=== PATIENT | female | born 1995 | race Caucasian/White ===

== ENCOUNTER 2016-09-05 15:28 | Emergency (ER) | payer BC ==
[~2016-09-05] VITALS: Ht 160 cm; Wt 101.7 kg
[~2016-09-05 15:28] MED LIST: ALBUAER2 INH; DEXM10TA PO; DEXM30CA PO; DEXM5TAB PO; IBUP-1451 PO; LANS30CA12 PO; RANI300T2 PO; SNG10 PO; SUMA50TA15 PO; VALA1TAB PO; ZLF/50 PO
[2016-09-05 15:51] VITALS: BP 112/69; PULSE 89; TEMP 36.8; O2SAT 99; Ht 160 cm; Wt 101.7 kg
== END 2016-09-05 17:39 | disposition left against medical advice (07) ==
LOC: C.EDB 15:30 → C.EDC 17:39
DX: R10.9 Unspecified abdominal pain (principal)

== ENCOUNTER 2016-10-13 16:13 | Emergency (ER) | payer BC, OTHER ==
[~2016-10-13] VITALS: Ht 160 cm; Wt 103.3 kg
[2016-10-13 16:19] VITALS: Ht 160 cm; Wt 103.3 kg
[2016-10-13] MEDS ORDERED: ZNTT/150 PO (17:43)
[2016-10-13] MEDS ORDERED: MONT1TAB5 PO (17:43)
[2016-10-13 17:44] LABS: URINE APPEARANCE CLOUDY (CLEAR); URINE BILIRUBIN NEG (NEG); URINE COLOR YELLOW; URINE EPITHELIAL CELL AUTO >30 /lpf (0-5); URINE NITRITE NEG (NEG); URINE SPECIFIC GRAVITY 1.024 (1.000-1.030); UROBILINOGEN NEG (NEG)
[2016-10-13 17:45] LABS: MANUAL MICROSCOPIC REQUIRED? NO; REVIEW REQ? YES
--- NOTE | 2016-10-13 17:47 | EMERGENCY ROOM VISIT NOTE ---
History First contact with patient: 17:09 Chief Complaint: ABDOMINAL PAIN Stated Complaint: DISCHARGE, CRAMPING- 11WKS Nursing Triage Summary: triage note: pt reprots "i am having yellowish discharge and abd cramping and i am 11 weeks today." History of Present Illness The patient is a 20 year old female who presents to the Emergency Room with complaints of vaginal discharge and lower abdominal "burning" that started today. She states she had large amount of clear and white vaginal discharge. She states that she is 11 weeks , , and has already had her first trimester screening including ultrasound. Patient states that she was found to have a Chlamydia infection a few weeks ago, she did not have any symptoms with this, and she was treated. She was also told to take Monistat for suspected yeast infection, which she did not start taking until recently. She denies any foul smelling discharge, vaginal itching or pain, vaginal bleeding, abdominal pain, back pain, intractable nausea/vomiting, urinary complaints. Review of Systems GENERAL: Denies fevers, chills, malaise, fatigue, unintentional weight changes. HEENT: Denies dizziness, visual problems, hearing loss, tinnitus. Denies difficulty swallowing or oral lesions. PULMONARY: Denies cough, shortness of breath, sputum production or hemoptysis. CARDIOVASCULAR: Denies chest pain, palpitations, dyspnea on exertion, orthopnea or peripheral edema. GASTROINTESTINAL: Denies diarrhea, constipation, nausea, vomiting, or abdominal pain. GENITOURINARY: Denies dysuria, frequency, urgency or nocturia. + Vaginal discharge. NEUROLOGIC: Denies history of epilepsy, CVA, TIA or chronic headaches. MUSCULOSKELETAL: Denies history of joint tenderness/swelling. SKIN: Denies rashes or lesions. PSYCHIATRIC: Denies history of depression or mental illness. ENDOCRINE: Denies history of diabetes, thyroid disorders, abnormal hair growth or sexual dysfunction. Past Medical/Surgical History Medical Problems: (1) Asthma (2) FAM HX-DIABETES MELLITUS (3) FAMILY HISTORY OF OTHER CARDIOVASCULAR DISEASES (4) FAMILY HX-MALIGNANCY NOS Family History Cancer Heart disease Social History Smoking Status: Former Smoker Alcohol Use: none Marital Status: single Housing Status: lives with family Occupation Status: student Current/Historical Medications Scheduled Montelukast Sodium (Montelukast Sodium), 10 MG PO DAILY Ranitidine (Zantac), 50 MG PO DAILY Allergies Coded Allergies: Amoxicillin (Unverified Allergy, Mild, OTHER, 02/05/15) POLLEN (Unverified Allergy, Unknown, SNEEZE ITCHY WATERY EYES, 02/05/15) Physical Exam Vital Signs Date Time Temp Pulse Resp B/P Pulse Ox O2 Delivery O2 Flow Rate FiO2 10/13/16 19:03 36.9 88 18 111/87 99 10/13/16 18:35 88 18 111/87 99 Room Air 10/13/16 16:19 36.9 94 18 106/69 99 Room Air Physical Exam CONSTITUTIONAL: No acute distress. Well appearing and well nourished. Alert and oriented X 4 with normal affect. HEENT: Normocephalic, atraumatic. Pupils equal, round and reactive to light, EOMI. TMs normal. Pharynx normal. NECK: Supple, full active range of motion without discomfort. RESPIRATORY: Clear to auscultation bilaterally with no wheezing, crackles, rhonchi or stridor. Equal expansion bilaterally. CARDIOVASCULAR: Regular rate and rhythm with no murmurs, rubs or gallops. Normal peripheral perfusion. No edema. GASTROINTESTINAL: Soft, nontender, nondistended. Bowel sounds present in all quadrants. GENITOURINARY: External genitalia appear normal. Speculum exam reveals normal- appearing cervix with moderate amount of thick, white discharge consistent with harleen infection. No cervical motion tenderness, uterine tenderness, adnexal tenderness on internal exam. No bleeding or blood clots noted. Cervical os is closed. MUSCULOSKELETAL: Full range of motion of all joints without discomfort. INTEGUMENTARY: No rash or other significant dermatologic conditions noted. NEUROLOGIC: Cranial nerves II-XII grossly intact. No focal neurologic deficits noted. Medical Decision & Procedures ER Provider Diagnostic Interpretation: ED bedside ultrasound performed to evaluate the . Transabdominal imaging done with the phased array probe. heart rate measured at 171 bpm using M mode. Active movement noted on ultrasound. Fetus measuring consistent with dates by crown-rump length, approximately 11 weeks 3 days. Patient tolerated well with no medications. Laboratory Results Test 10/13/16 17:30 Urine Color YELLOW Urine Appearance CLOUDY (CLEAR) Urine pH 5.0 (4.5-7.5) Urine Specific [place] 1.024 (1.000-1.030) Urine Protein NEG (NEG) Urine Glucose (UA) NEG (NEG) Urine Ketones NEG (NEG) Urine Occult Blood NEG (NEG) Urine Nitrite NEG (NEG) Urine Bilirubin NEG (NEG) Urine Urobilinogen NEG (NEG) Urine Leukocyte Esterase NEG (NEG) Urine WBC (Auto) 1-5 /hpf (0-5) Urine RBC (Auto) 0-4 /hpf (0-4) Urine Hyaline Casts (Auto) 1-5 /lpf (0-5) Urine Epithelial Cells (Auto) >30 /lpf (0-5) Urine Bacteria (Auto) NEG (NEG) Urine Crystals CALCIUM OXALATE (NONE Urine Yeast (Auto) (NONE PRSENT) Date/Time Source Procedure Growth Status 10/13/16 17:55 Cervix Swab Trichomonas Preparation - Final Complete ED Course Patient was evaluated at bedside, history of physical exam performed. Orders were placed at bedside for urinalysis and endocervical cultures to evaluate for UTI, intravaginal infection. Patient discussed with Dr. Sylvester, who agrees with my assessment and plan. All resulted labs were reviewed. Patient updated results. Patient discharged home in good condition with plans to follow closely with her OB. Medical Decision CC: Patient presenting with complaint of vaginal discharge Interpretation of Labs: Urinalysis appears normal, no bacteriuria or concern for infection. Urine and endocervical cultures pending. Differential Diagnosis: Includes, but not limited to bacterial vaginosis, candidal vaginal infection, STI, urinary tract infection, threatened miscarriage. Summary: Patient is alert, no acute distress. Pleasant on examination. Patient states she has primarily concerned with large amount of vaginal discharge today. Patient did state abdominal pain to triage, however she denies this to me and is nontender on abdominal exam. Internal pelvic exam reveals moderate amount of thick white discharge consistent with a yeast infection. No bleeding noted in the vagina, cervix is closed. No cervical motion tenderness or friability. Urinalysis appears negative for infection, culture pending. Given her recent chlamydia infection and current state, repeat endocervical cultures for chlamydia, gonorrhea, trichomoniasis, BV, yeast all sent to the lab. Bedside ultrasound showed an active fetus consistent with dates, with a normal heart rate. Patient's exam most concerning for vaginal yeast infection, patient has just started treatment with Monistat, I encouraged her to continue this and follow closely with her OB. Patient reassessed multiple times throughout ED stay, she remained stable. Patient was discussed with and independently examined by the attending physician , who agrees with my assessment and disposition. Impression Primary Impression: Vaginal discharge during in first trimester Departure Information Dispostion Home / Self-Care Condition GOOD Referrals Chelsy Zhang (PCP) Patient Instructions My [facility] Additional Instructions Follow-up with your OB doctor in the next few days, especially if your symptoms are not improving or getting worse. Finish taking the Monistat treatment for your vaginal yeast infection. This should treat the cause of your discharge, although keep in mind that some clear discharge is normal with . Urine and vaginal cultures were sent to the lab today which should result in the next 2-3 days. You will be called if anything comes back abnormal. Please return to the ER for any worsening symptoms, including severe or constant abdominal pain, vaginal bleeding, persistent vomiting and unable to keep down fluids, fevers/chills/feeling ill, or any other concerns.
[2016-10-13 19:03] VITALS: BP 111/87; PULSE 88; TEMP 36.9; O2SAT 99
== END 2016-10-13 19:03 | disposition home or self-care (01) ==
LOC: C.EDB 16:15
DX: O99.89 Other specified diseases and conditions complicating pregnancy, childbirth and the puerperium (principal); Z3A.11 11 weeks gestation of pregnancy; R10.9 Unspecified abdominal pain; N89.8 Other specified noninflammatory disorders of vagina; J45.909 Unspecified asthma, uncomplicated; Z87.891 Personal history of nicotine dependence; Z83.3 Family history of diabetes mellitus

== ENCOUNTER → 2017-02-02 | Outpatient (CLI) | payer OTHER ==
[~2017-02-02] MED LIST changes: -ALBUAER2 INH; -DEXM10TA PO; -DEXM30CA PO; -DEXM5TAB PO; -IBUP-1451 PO; -LANS30CA12 PO; +MONT1TAB5 PO; -RANI300T2 PO; -SNG10 PO; -SUMA50TA15 PO; -VALA1TAB PO; -ZLF/50 PO; +ZNTT/150 PO
[2017-02-02 14:46] LABS: URINE APPEARANCE CLOUDY (CLEAR); URINE BILIRUBIN NEG (NEG); URINE COLOR YELLOW; URINE EPITHELIAL CELL AUTO >30 /lpf (0-5); URINE NITRITE NEG (NEG); URINE PH 6.5 (4.5-7.5); URINE SPECIFIC GRAVITY 1.027 (1.000-1.030); UROBILINOGEN NEG (NEG)
[2017-02-02 14:47] LABS: MANUAL MICROSCOPIC REQUIRED? NO; REVIEW REQ? NO
== END | disposition home or self-care (01) ==
LOC: C.LABSPEC 13:59
PROVIDERS: ATTEND Obstetrics & Gynecology
DX: Z34.02 Encounter for supervision of normal first pregnancy, second trimester (principal)

== ENCOUNTER → 2017-02-13 | Outpatient (CLI) | payer OTHER ==
[2017-02-13 12:14] LABS: HEMATOCRIT 35.3 % (37-47)
== END | disposition home or self-care (01) ==
LOC: C.LAB1850 10:05
PROVIDERS: ATTEND Obstetrics & Gynecology
DX: Z34.02 Encounter for supervision of normal first pregnancy, second trimester (principal); Z3A.00 Weeks of gestation of pregnancy not specified

== ENCOUNTER 2017-04-06 20:58 | Outpatient (CLI) | payer OTHER ==
[~2017-04-06] VITALS: Ht 160 cm; Wt 110.2 kg
[2017-04-06] MEDS ORDERED: PRENTAB26 PO (21:28)
[2017-04-06] MEDS ORDERED: PRLSR20 PO (21:28)
[2017-04-06] MEDS ORDERED: FLVHFA110 INH (21:28)
[2017-04-06] MEDS ORDERED: VNTHFA/IN INH (21:28)
[2017-04-06] MEDS ORDERED: SERT50TA PO (21:28)
[2017-04-06 21:29] VITALS: Ht 160 cm; Wt 110.2 kg
== END 2017-04-06 21:59 | disposition home or self-care (01) ==
LOC: C.OPB 20:58 → C.LD 20:58 → C.OPB 21:59
PROVIDERS: ATTEND Obstetrics & Gynecology
DX: O99.89 Other specified diseases and conditions complicating pregnancy, childbirth and the puerperium (principal); R10.9 Unspecified abdominal pain; Z3A.00 Weeks of gestation of pregnancy not specified

== ENCOUNTER 2017-04-16 10:04 | Outpatient (CLI) | payer OTHER ==
[~2017-04-16] VITALS: Ht 160 cm; Wt 114.0 kg
[~2017-04-16 10:04] MED LIST changes: +FLVHFA110 INH; +PRENTAB26 PO; +PRLSR20 PO; +SERT50TA PO; +VNTHFA/IN INH; -ZNTT/150 PO
[2017-04-16 10:35] VITALS: Ht 160 cm; Wt 114.0 kg
== END 2017-04-16 11:00 | disposition home or self-care (01) ==
LOC: C.OPB 10:04 → C.LD 10:04 → C.OPB 11:00
PROVIDERS: ATTEND Obstetrics & Gynecology
DX: O26.893 Other specified pregnancy related conditions, third trimester (principal); Z3A.37 37 weeks gestation of pregnancy

== ENCOUNTER 2017-05-06 16:50 | Inpatient (IN) | payer OTHER ==
[~2017-05-06] VITALS: Ht 160 cm; Wt 115.9 kg
[2017-05-06 17:24] VITALS: Ht 160 cm; Wt 115.9 kg
[2017-05-06 18:33] LABS: MEAN CELL VOLUME 88.2 fL (80-100); MEAN CORPUSCULAR HEMOGLOBIN 29.9 pg (25-34); MEAN CORPUSCULAR HGB CONC 33.9 g/dl (32-36); MEAN PLATELET VOLUME 9.9 fL (7.4-10.4); PLATELET COUNT 236 K/uL (130-400); RED BLOOD COUNT 4.31 M/uL (4.2-5.4); WHITE BLOOD COUNT 13.09 K/uL (4.8-10.8)
[2017-05-06] MEDS ORDERED: LACTATED RINGER'S 1000ML 1,000 ML IV PRN (18:55)
[2017-05-06] MEDS ORDERED: LACTATED RINGER'S 1000ML 500 ML IV PRN (22:37)
[2017-05-06] MEDS ORDERED: OXYTOCIN 30 UNITS/500ML NSS IV PRN (22:45)
[2017-05-06] MEDS: LACTATED RINGER'S 1000ML 1,000 ML IV SCH (22:54)
[2017-05-07] MEDS ORDERED: FENTANYL CITRATE INJ 50 MCG/1 ML 2 ML VIAL ONE (02:06)
[2017-05-07] MEDS ORDERED: BUPIVACAINE 0.25% 30 ML VIAL ONE ×2 (02:06→14:38)
[2017-05-07] MEDS ORDERED: EpHEDrine SULFATE INJ 50 MG/ML AMP ONE (02:06)
[2017-05-07] MEDS ORDERED: FENTANYL 2MCG/ML ROPIV 1.25MG/ML 100ML BAG EPI ONE (02:06)
[2017-05-07] MEDS: LACTATED RINGER'S 1000ML 1,000 ML IV SCH ×3 (02:32→12:21)
[2017-05-07] MEDS ORDERED: LACTATED RINGER'S 1000ML 500 ML IV PRN (04:04)
[2017-05-07] MEDS ORDERED: NALOXONE HCL INJ 0.4 MG/1 ML VIAL/CARP IV PRN (04:15)
[2017-05-07] MEDS ORDERED: EpHEDrine SULFATE INJ 50 MG/ML AMP IV PRN (04:15)
[2017-05-07] MEDS: FENTANYL 2MCG/ML ROPIV 1.25MG/ML 100ML BAG EPI PRN ×5 (07:09→19:02)
[2017-05-07] MEDS ORDERED: ONDANSETRON INJ 2 MG/ML 2 ML VIAL ONE (18:22)
[2017-05-07] MEDS ORDERED: ONDANSETRON INJ 2 MG/ML 2 ML VIAL IV ONE (19:00)
--- NOTE | 2017-05-07 19:28 | Anesthesiology Progress Note ---
Anesthesia Progress Note Date of Service May 07, 2017. Progress Notes Called to help with more painful contractions while she finishes dilating. Bolus with lido 1.5% 5ml then 2.5ml with a good amount of relief. Vitals and FHR stable.
[2017-05-07] MEDS ORDERED: METHYLERGONOVINE MALEATE 0.2 MG/ML AMP ONE (20:56)
[2017-05-07] MEDS ORDERED: MISOPROSTOL 200 MCG TAB ONE (21:01)
[2017-05-07] MEDS ORDERED: IBUPROFEN 600 MG TAB ONE (21:07)
[2017-05-07] MEDS ORDERED: METHYLERGONOVINE MALEATE 0.2 MG/ML AMP IM ONE (21:15)
[2017-05-07] MEDS ORDERED: SUPERCREAM 0.870 % 15GM JAR EXT PRN (21:15)
[2017-05-07] MEDS ORDERED: OXYTOCIN 30 UNITS/500ML NSS IV PRN (21:15)
[2017-05-07] MEDS ORDERED: ACETAMINOPHEN 325 MG TAB PO PRN (21:15)
[2017-05-07] MEDS ORDERED: HYDROCORTISONE ACETATE 25 MG SUPP PR PRN (21:15)
[2017-05-07] MEDS ORDERED: OXYCODONE/ACETAMINOPHEN 5-325 TAB PO PRN (21:15)
[2017-05-07] MEDS ORDERED: BENZOCAINE 20% AER SPR 82.5 GM CAN EXT PRN (21:15)
[2017-05-07] MEDS ORDERED: IBUPROFEN 600 MG TAB PO PRN (21:15)
[2017-05-07] MEDS ORDERED: MISOPROSTOL 200 MCG TAB PR SCH (21:15)
[2017-05-07] MEDS ORDERED: LANOLIN OINT EXT PRN ×2 (21:15)
[2017-05-07] MEDS ORDERED: OXYTOCIN INJ 20 UNITS in LACTATED RINGER'S 1000ML 1,000 ML IV SCH (21:24)
--- NOTE | 2017-05-07 21:48 | DELIVERY SUMMARY ---
DATE OF OPERATION: 05/07/2017 PREOPERATIVE DIAGNOSES: 1. Intrauterine at 40-2/7 weeks. 2. Rupture of membranes prior to onset of labor. 3. Gestational diabetes, diet controlled. 4. Obesity. POSTOPERATIVE DIAGNOSES: Same and hemorrhage. PROCEDURES: 1. Pitocin augmentation. 2. Epidural anesthesia. 3. Intrauterine pressure catheter placement. 4. Normal spontaneous vaginal delivery. 5. Bilateral labial and first degree perineal lacerations with repair. SURGEON: Guera Bauer MD. ANESTHESIA: Epidural. ESTIMATED BLOOD LOSS: 600 mL. DESCRIPTION OF PROCEDURE: The patient presented to labor and delivery with rupture of membranes per clear fluids at 4:30 prior to the onset of labor. She was allowed to expectant management for 6 hours and then without change, Pitocin augmentation was started at approximately 10:30 on 05/06/2017. When she was checked at 6 a.m. she was unchanged and so eventually an intrauterine pressure catheter was placed and Pitocin was augmented to achieve greater than 200 MVUs. Once that was achieved, the patient progressed slowly to complete, complete and +1 station. The patient required several redosings of her epidural and did require redosing of her epidural right before pushing because she was not tolerating her contractions and was unable to push. The patient then rested for half hour and was quite comfortable, was checked and found to be complete, complete and +1 to +2 station. The patient pushed with excellent effort for approximately half hour to deliver a viable female infant in TERRIE presentation. There was a loose nuchal cord x1 that was reduced and the rest of the baby was delivered easily. The nose and mouth were bulb suctioned. The was placed on the maternal abdomen for drying and attention where the cord was clamped and cut. Cord blood and segment were obtained. Placenta was delivered spontaneously intact in 3-vessel cord. A hemorrhage was encountered. Cervix, sulci and rectum were examined and found to be intact. Manual exploration of the uterus x2 revealed no products of conception. Hemostasis was eventually obtained using dilute Pitocin, fundal massage, IM Methergine and 800 mcg of per rectal Cytotec. Uterus was firm at the end of the delivery and bleeding was minimal. Bilateral labial lacerations were repaired with interrupted sutures of 4-0 Vicryl and a small first degree vaginal laceration was repaired with 3-0 interrupted sutures with 3-0 Vicryl. Apgars were 8 and 9. All sponge, lap and needle counts were correct. I attest to the content of the Intraoperative Record and any orders documented therein. Any exception s are noted below.
[2017-05-07 23:45] VITALS: BP 132/80; PULSE 116; TEMP 37.7
[2017-05-08 03:25] VITALS: BP 108/70; PULSE 103; TEMP 37.5
[2017-05-08 06:18] LABS: HEMATOCRIT 26.4 % (37-47)
--- NOTE | 2017-05-08 06:57 | Medical Student: [facility] ---
Med Student LABORER GENERAL Progress Nt Date of Service May 08, 2017. Subjective Notes: 21yo [id number] with GDM-diet controlled and obesity post- day 1 of induced VD at 40-2 after PROM. Post- hemorrhage experienced after delivery. Today, pt is feeling "great", except for soreness from labial and perineal lacerations. Ambulating w/o lightheadedness or dizziness. Eating a regular diet w/o nausea or vomiting. Slept about 6hrs. Desires to breast feed , but was not latching yet. No BM since delivery. Voiding w/o difficulty, but some pain from lacerations. Bleeding/lochia is described as a normal period for the pt. Denies fever, chills, and calf pain. Pt reports some persistent nasal congestion and cough. Rest of ROS is negative. Review of Systems Constitutional: No fever, No chills, No sweats Respiratory: + cough, No shortness of breath, No dyspnea on exertion Cardiac: No chest pain, No palpitations Abdomen: No nausea, No vomiting Female : + dysuria, No urinary frequency, No hematuria Objective Vital Signs Date Time Temp Pulse Resp B/P (MAP) Pulse Ox O2 Delivery O2 Flow Rate FiO2 05/08/17 03:25 37.5 103 18 108/70 (83) Room Air 05/07/17 23:45 37.7 116 18 132/80 (97) Room Air 05/07/17 23:45 Room Air Physical Exam General Appearance: WELL-APPEARING, WD/WN, NO APPARENT DISTRESS Respiratory/Chest: lungs clear, normal breath sounds Cardiovascular: regular rate, rhythm, no murmur Abdomen: normal bowel sounds, non tender, no organomegaly Fundus: Firm, Non-Tender, Relation to Umbilicus (midline 1 finger below umbilicus ) Extremities: non-tender, normal inspection, no calf tenderness Laboratory Results Last 24 Hours Test 05/07/17 08:33 05/07/17 10:36 05/07/17 12:23 05/07/17 14:54 Bedside Glucose 83 mg/dl 76 mg/dl 74 mg/dl 75 mg/dl Test 05/07/17 17:22 05/07/17 19:14 05/08/17 05:56 Bedside Glucose 76 mg/dl 93 mg/dl Hemoglobin 8.8 g/dL Hematocrit 26.4 % Assessment and Plan Day Number: 1 Continue Routine Care: 21yo [id number] day 1: vital signs reviewed- stable Hgb 12.9, 8.8- stable O+/GBSneg/RI Continue to monitor lochia/bleeding, pain, and healing from b/l labial and first degree perineal laceration.
--- NOTE | 2017-05-08 07:20 | Progress Note ---
Subjective May 08, 2017. Subjective conversation w/ patient, physical exam, chart review, lab review Ambulation: ambulating normally Voiding: no voiding problems Passing Gas: Yes Diet Tolerance: Regular Diet Lochia: Moderate Feeding Type: Breast Feeding Pain: controlled Review of Systems Respiratory: No shortness of breath Abdomen: No nausea, No vomiting Female : No dysuria Objective Vital Signs Date Time Temp Pulse Resp B/P (MAP) Pulse Ox O2 Delivery O2 Flow Rate FiO2 05/08/17 03:25 37.5 103 18 108/70 (83) Room Air 05/07/17 23:45 37.7 116 18 132/80 (97) Room Air 05/07/17 23:45 Room Air Physical Exam General Appearance: WELL-APPEARING, WD/WN, NO APPARENT DISTRESS Respiratory/Chest: lungs clear, normal breath sounds, no respiratory distress Cardiovascular: regular rate, rhythm, no gallop Abdomen: normal bowel sounds, soft Fundus: Firm, Non-Tender, Relation to Umbilicus (at level of U) Extremities: non-tender, normal inspection Laboratory Results Last 24 Hours Test 05/07/17 08:33 05/07/17 10:36 05/07/17 12:23 05/07/17 14:54 Bedside Glucose 83 mg/dl 76 mg/dl 74 mg/dl 75 mg/dl Test 05/07/17 17:22 05/07/17 19:14 05/08/17 05:56 Bedside Glucose 76 mg/dl 93 mg/dl Hemoglobin 8.8 g/dL Hematocrit 26.4 % Assessment and Plan Post- Day#: 1 Continue Routine Care: 21 yof (now1), 12/3 at 2044 O+/GBS-/RI Vital signs reviewed and wnl with mild tachycardia (103). Normotensive. Hgb 12.9, 8.8. Pt doing well clinically. Encourage ambulation, , control pain with motrin/tylenol. Monitor lochia. Continue routine post care. LIYA VENTURA FMR PGY 1 Resident Physician Supervision Note: I interviewed and examined the patient. Discussed with Dr. Ventura and agree with findings and plan as documented in the note. Any exceptions or clarifications are listed here: Doing very well. no s/s of anemia. Documented By: Guera Bauer . Resident Tracking Resident Involvement: Resident Care Provided Care Provided: OB Delivery
[2017-05-08] MEDS: DOCUSATE SODIUM 100 MG CAP PO SCH ×2 (08:32→19:32)
[2017-05-08] MEDS: PRENATAL VITAMIN TAB PO SCH (08:32)
[2017-05-08 08:35] VITALS: BP 98/61; PULSE 108; TEMP 36.9; O2SAT 98
[2017-05-08] MEDS ORDERED: MISC-696 (09:31)
--- NOTE | 2017-05-08 09:33 | Discharge Instructions ---
Discharge Instructions Date of Service May 08, 2017. Admission Reason for Admission: R/O Ruptured Membranes Discharge Discharge Diagnosis / Problem: Spontaneous Vaginal Delivery Discharge Goals Goal(s): Routine recovery after delivery Medications Continue Dispensed Medications: supercream, dermaplast, tucks, lansinoh Activity Recommendations Activity Limitations: per Instructions/Follow-up section . Instructions / Follow-Up Instructions / Follow-Up ACTIVITY RECOMMENDATIONS: * Gradual return to full activity over the next 2-3 weeks. * No lifting - nothing heavier than baby over the next 2-3 weeks. * Do not engage in vigorous exercise, sexual activity or sports until cleared by your physician. * Do not drive or operate any motorized equipment until cleared by your physician. * You may shower/bathe daily. MEDICATIONS: For discomfort or pain, you may use Acetaminophen (Tylenol), Ibuprofen (Advil), or Naproxen (Aleve) following the package directions. For constipation you may use Colace following the package directions. BREAST CARE: If you are not breast feeding: * Wear a supportive bra 24 hours a day for one to two weeks. * Avoid stimulating your breasts and nipples as much as possible during the first few weeks after delivery. * When taking a shower, have the warm water hit your back, not breasts. * When your breasts feel full, apply ice packs. Usually three to four times a day helps ease the discomfort. * Take a mild pain medication (Tylenol / Motrin) when you are uncomfortable. If breast feeding: * Use breast milk to lubricate nipples. Lansinoh cream may be used for sore nipples. You do not need to remove cream prior to breast feeding. If using a different brand of cream, check the label for directions regarding removal of cream prior to nursing. * Wear a supportive bra. * If having problems with breasts or breast feeding, call a showroom consultant or your health care provider. EPISIOTOMY CARE: After delivery, if you have an episiotomy (stitches), the following steps will ease discomfort and aid healing. * For the first 24 hours after delivery, place ice packs next to your episiotomy to help reduce swelling. * After the first 24 hour-period, sitz baths, either portable or in the tub, are suggested. A shower with a shower arm sprayed over the episiotomy may be comforting. * Katarina care should be done after each voiding and bowel movement. Squirt warm water from a plastic bottle over the perineum (region of the body between the anus and urinary opening) and pat dry. * Use Dermoplast to ease discomfort. Shake container. [place] directly over the episiotomy. Place a Tucks on a clean sanitary pad next to your episiotomy. SPECIAL CARE INSTRUCTIONS: When you are discharged from the hospital, it is important for you to follow the instructions listed below: * During the first week at home, you should be able to care for yourself and your baby. In addition, the usual light household activities are encouraged. * Limit your activities to the way you feel. Do not try to clean the house or move furniture. Be sensible. * If you actively engage in sports and have done so up until the time of your delivery, you may resume these activities as soon as you feel able. This may take up to one month or even longer. Use good judgment. * Continue to take your vitamins for at least six weeks after the of your baby. * Your diet need not be limited unless you were on a special diet before your delivery. Breast-feeding mothers need around 2500 calories per day and at least 64-80 ounces of fluid per day (8 to 10 glasses). * You should eat foods from the four major food groups. Crash diets or fad diets are to be avoided. Eating lean meats, fresh fruits and vegetables, low-fat dairy products, high fiber foods and a regular exercise program, will help you get back to your pre- weight without putting your health at risk. * Constipation is sometimes a problem after delivery. Take a mild laxative as needed. If breast feeding, Milk of Magnesia is acceptable to use. You may use a suppository or Fleets enema if no episiotomy. * A daily shower or tub bath is suggested. Be sure to thoroughly and gently dry the perineum. * A bloody vaginal discharge will usually continue until around four weeks post . A small amount of bleeding may continue for as long as six weeks. Vaginal discharge changes from the bright red bleeding after delivery to pink then brownish and finally yellowish-pink before becoming white and disappearing. * Bleeding may increase with activity. Your first period may come in 4-8 weeks. If you are breast feeding, your period may be delayed even longer. * [place] (sex) can begin whenever both you and your partner feel comfortable and do not have any form of genital infection. It is recommended that you wait at least six weeks for internal and external healing to occur. If you have questions, please talk to your health care practitioner. A condom should be used to prevent infection and . * Foreplay, gentle intercourse and lubrication is very important the first several times to prevent pain. A water-based lubricant such as K-Y jelly or Astroglide may be used. * If you have RH negative blood and your baby is RH positive, you will receive RHOGAM by injection prior to discharge. The nurse will give you a card to keep with you that has the date and place that you received RHOGAM after delivery. * During your care, you had a Rubella screen done to check for the presence of rubella antibodies in your blood. If your test was negative, you will receive a Rubella vaccine prior to discharge. This vaccine may cause a fever, soreness at the injection site and flu-like symptoms. If these symptoms persist, notify your health care practitioner. is not advised for one month after a Rubella vaccine. * Verbalizes understanding of car seat law as reviewed with patient nursing. * Car Seat hand-out given and reviewed with patient by nursing. * Shaken baby information reviewed with patient by nursing. Call you doctor if: * Heavy bleeding (saturating several pads an hour) or passing clots the size of your fist. * A fever >101 degrees F (38.3 degrees C) on two occasions four hours apart and /or chills. * Unusual pain in the pelvic or vaginal areas. * "Baby Blues" lasting longer than two weeks. If you have any questions or concerns, call your health care practitioner at . FOLLOW UP VISIT: * Please call the office at to schedule a 6 week examination. It is important you keep this appointment. It is important for you to make arrangements for either yearly or twice yearly check-ups thereafter. Current Hospital Diet Patient's current hospital diet: Regular Diet Discharge Diet Recommended Diet: Regular OB Diet Pending Studies Studies pending at discharge: no Medical Emergencies . Who to Call and When: Medical Emergencies: If at any time you feel your situation is an emergency, please call 911 immediately. . Non-Emergent Contact Non-Emergency issues call your: Primary Care Provider . . "Provider Documentation" section prepared by Albina Ventura. . VTE Core Measure Inpt VTE Proph given/why not?: Treatment not indicated
--- NOTE | 2017-05-08 11:05 | Anesthesia Procedure Note ---
Anesthesia Epidural Removal Nt Date & Time May 08, 2017 at 11:05 Vital Signs Pain Intensity: 2.0 Vital Signs Past 12 Hours Date Time Temp Pulse Resp B/P (MAP) Pulse Ox O2 Delivery O2 Flow Rate FiO2 05/08/17 03:25 37.5 103 18 108/70 (83) Room Air 05/07/17 23:45 37.7 116 18 132/80 (97) Room Air 05/07/17 23:45 Room Air Notes Mental Status: alert / awake / arousable, participated in evaluation Nausea / Vomiting: adequately controlled Pain: adequately controlled Airway Patency, RR, SpO2: stable & adequate BP & HR: stable & adequate Hydration State: stable & adequate Neuraxial Anesthesia: was administered Anesthetic Complications: no major complications apparent, pt satisfied with anesthetic care Epidural: removed without complications, with tip intact
[2017-05-08 11:15] VITALS: BP 103/71; PULSE 108; TEMP 36.6; O2SAT 98
[2017-05-08 16:00] VITALS: BP 111/74; PULSE 120; TEMP 37
[2017-05-08 19:45] VITALS: PULSE 123; TEMP 36.8; O2SAT 99
[2017-05-08 21:00] VITALS: BP 102/79
[2017-05-09 00:30] VITALS: BP 103/67; PULSE 114; TEMP 36.7
--- NOTE | 2017-05-09 07:10 | Progress Note ---
Subjective May 09, 2017. Subjective conversation w/ patient, conversation w/ family, physical exam, chart review, lab review Ambulation: ambulating normally Voiding: no voiding problems Passing Gas: Yes Diet Tolerance: Regular Diet Lochia: Moderate Feeding Type: Breast Feeding Pain: controlled Review of Systems Respiratory: No shortness of breath Female : No dysuria Objective Vital Signs Date Time Temp Pulse Resp B/P (MAP) Pulse Ox O2 Delivery O2 Flow Rate FiO2 05/09/17 00:30 36.7 114 18 103/67 (79) Room Air 05/09/17 00:30 Room Air 05/08/17 21:00 102/79 (87) 05/08/17 19:45 36.8 123 20 99 Room Air 05/08/17 16:00 Room Air 05/08/17 16:00 37.0 120 20 111/74 (86) Room Air 05/08/17 11:15 36.6 108 18 103/71 (82) 98 Room Air 05/08/17 08:35 36.9 108 18 98/61 (73) 98 Room Air 05/08/17 08:35 Room Air Physical Exam General Appearance: WELL-APPEARING, WD/WN, NO APPARENT DISTRESS Respiratory/Chest: lungs clear, normal breath sounds, no respiratory distress Cardiovascular: regular rate, rhythm, no gallop Abdomen: normal bowel sounds, soft Fundus: Firm, Non-Tender, Relation to Umbilicus (1 below U) Extremities: non-tender, normal inspection Laboratory Results Last 24 Hours Test 05/09/17 04:44 Assessment and Plan Post- Day#: 2 Continue Routine Care: 21 yof (now1), 12/3 at 2044 O+/GBS-/RI Vital signs reviewed and wnl with mild tachycardia (114). Normotensive. Hgb 12.9, 8.8, today pending. Pt doing well clinically, no s/s anemia Encourage ambulation, , control pain with motrin/tylenol. Monitor lochia. Continue routine post care. Pt counselled on discharge instructions. LIYA VENTURA FMR PGY 1 Resident Physician Supervision Note: I interviewed and examined the patient. Discussed with Dr. Ventura and agree with findings and plan as documented in the note. Any exceptions or clarifications are listed here: [None] Documented By: Chelsy Cm Resident Tracking Resident Involvement: Resident Care Provided Care Provided: OB Delivery
[2017-05-09 07:55] VITALS: BP 119/85; PULSE 108; TEMP 36.3
[2017-05-09 08:01] LABS: HEMATOCRIT 27.1 % (37-47); MEAN CELL VOLUME 89.1 fL (80-100); MEAN CORPUSCULAR HEMOGLOBIN 29.6 pg (25-34); MEAN CORPUSCULAR HGB CONC 33.2 g/dl (32-36); MEAN PLATELET VOLUME 9.8 fL (7.4-10.4); PLATELET COUNT 206 K/uL (130-400); RED BLOOD COUNT 3.04 M/uL (4.2-5.4); WHITE BLOOD COUNT 23.12 K/uL (4.8-10.8)
[2017-05-09] MEDS: PRENATAL VITAMIN TAB PO SCH (08:01)
[2017-05-09] MEDS: DOCUSATE SODIUM 100 MG CAP PO SCH (08:01)
[2017-05-09 10:05] VITALS: BP_DIAS 85; PULSE 108; TEMP 36.3
== END 2017-05-09 10:10 | disposition home or self-care (01) | DRG 774 ==
LOC: C.OPB 16:50 → C.LD 16:50 → C.OPB 17:59 → C.OBG 05-07 23:15
PROVIDERS: ADMIT Obstetrics & Gynecology; ATTEND Obstetrics & Gynecology
PROC: 0HQ9XZZ Repair Perineum Skin, External Approach (ICD-10-PCS; principal; 2017-05-06)
PROC: 10E0XZZ Delivery of Products of Conception, External Approach (ICD-10-PCS; principal; 2017-05-06)
DX: O24.420 Gestational diabetes mellitus in childbirth, diet controlled (principal); O72.1 Other immediate postpartum hemorrhage; O99.214 Obesity complicating childbirth; E66.9 Obesity, unspecified; Z3A.40 40 weeks gestation of pregnancy; O69.81X0 Labor and delivery complicated by cord around neck, without compression, not applicable or unspecified; O70.0 First degree perineal laceration during delivery; Z37.0 Single live birth

== ENCOUNTER → 2017-06-19 | Outpatient (CLI) | payer OTHER ==
[~2017-06-19] MED LIST changes: +MISC-836
== END | disposition home or self-care (01) ==
LOC: C.PAPS 09:46
PROVIDERS: ATTEND Obstetrics & Gynecology
DX: Z12.4 Encounter for screening for malignant neoplasm of cervix (principal); R87.612 Low grade squamous intraepithelial lesion on cytologic smear of cervix (LGSIL)

== ENCOUNTER 2019-10-24 07:20 | Inpatient (IN) ==
[2019-10-24] MEDS ORDERED: OXYTOCIN 30 UNITS/500 ML BAG IV PRN ×3 (07:34→18:30)
[2019-10-24 07:57] LABS: Hematocrit (blood only) 35.1 % (37-47); Hemoglobin 11.9 g/dL (12.0-16.0); Mean Corpuscular Hemoglobin 29.8 pg (25-34); Mean Platelet Volume 9.5 fL (7.4-10.4); Platelet Count 244 K/uL (130-400); RDW Coefficient of Variation 13.9 % (11.5-14.5); RDW Standard Deviation 44.9 fL (36.4-46.3); Red Blood Count 3.99 M/uL (4.2-5.4); White Blood Count 14.49 K/uL (4.8-10.8)
[2019-10-24 07:58] LABS: Mean Corpuscular Hgb Conc 33.9 g/dL (32-36)
[2019-10-24] MEDS: LACTATED RINGER'S 1,000 ML IV PRN ×2 (08:50→12:51)
--- NOTE | 2019-10-24 09:27 | History & Physical Report ---
Date of Service October 24, 2019 Assessment & Plan (1) Insulin controlled gestational diabetes mellitus (GDM) during : (2) Encounter for supervision of normal in multigravida, antepartum: admit, iv labs, bsg q2hr. plan pitocin and cx dilator placed. fhts categ 1. pt and partner aware of plan. History of Present Illness Chief Complaint: planned induction Primary Care Provider: Helena Sen PA-C 23yo at 39+wks egalex presents to L&D for planned induction due to GDM on insulin. Patient drank sweet tea on the way to hospital and her bsg here is 136. She has essentially been non compliant with gdm management/sending glucoses to endo. She has had serial growth us, last was aga with efw 40. She denies rom, vb or ctx this am. Notes good fm. PNC c/b 1. GDM on insulin as noted above 2. obesity PNL rh pos, ri, gbs neg OBH: x 1 GYNH: nl paps, no stds All Active Problems (Updated 10/24/19 @ 09:33 by Kenna Iyer MD, FACOG) Asthma (Acute 09/02/12) (Acute) Tobacco smoking affecting Obesity affecting , antepartum Encounter for supervision of normal in multigravida, antepartum Insulin controlled gestational diabetes mellitus (GDM) during Allergies Allergy/AdvReac Type Severity Reaction Status Date / Time amoxicillin Allergy Severe RASH, Verified 10/23/19 09:20 THROAT SWELLS pollen extracts Allergy Intermediate SNEEZE, Verified 10/23/19 09:20 ITCHY-WATERY EYES, CONGESTION Home Medications Home Medications Medication Instructions Recorded Confirmed Type albuterol sulfate 1.25 mg INHALATION QID PRN 10/24/19 10/24/19 History insulin glargine [Lantus U-100 8 unit SUBCUT HS 10/24/19 10/24/19 History Insulin] insulin lispro [Humalog KwikPen 8 unit SUBCUT TID 10/24/19 10/24/19 History Insulin] montelukast [Singulair] 10 mg PO DAILY 10/24/19 10/24/19 History pedi multivit no.19-folic acid 1 mcg PO 10/24/19 History [Flintstones Multi-Vit Gummies] Patient History Medical History (Updated 10/24/19 @ 09:33 by Kenna Iyer MD, FACOG) ADHD (attention deficit hyperactivity disorder) (Inactive) Anxiety no current meds Asthma (Chronic) uses inhaler PRN Depression no current meds w GERD (gastroesophageal reflux disease) (Resolved) Type 2 diabetes mellitus diagnosed in June 2017 Varicella vaccination Surgical History (Updated 09/23/19 @ 19:12 by Mora Harding RN) S/P tonsillectomy S/P wisdom tooth extraction 2014 Social History Preferred Language: Azeri Communication Ability: Effective Beliefs That Will Affect Care: None marital status: marital status details: luh Lynn (29) [phone] Current Living Situation: Spouse and Family Current Living Situation Comment: lives with fo, daughter, step-daughter, dog current occupational status: employed current occupation: [employer] Other Information That Helps Us Care for You: No Feels Safe at Home: Yes Safety Concerns: Feels Safe At This Time Smoking Status: Current every day smoker Tobacco Type: cigarettes ; Age Started Using Tobacco: 18 ; Cigarettes Per Day: 6 ; Do You Dip or Chew Tobacco: No ; Second Hand Exposure: Yes ; Tobacco Cessation Education Requested by Patient: No Hx Alcohol Use: No Hx Substance Use: No Review of Systems no fever no change in stools no dysuria and no abnormal vaginal bleeding Physical Exam Constitutional: WD/WN, vitals as above Respiratory: normal respiratory effort, lungs clear to auscultation Cardiovascular: Rate/Rhythm: regular rate and regular rhythm Gastrointestinal (Abdomen): Percussion/Palpation: abdomen soft (gravid, efw 7- 8#); abdomen nontender Musculoskeletal: no edema, nt calves Neurologic: grossly normal Psychiatric: A+Ox3, euthymic affect Genitourinary: Manual OB Exam: + cervical dilation (1+), + cervical effacement 50% and + station -2 OB Exam Monitor Tracing: + external FHT monitor used (130 mod variability), + external uterine monitor used (irreg), + category I and + normal FHT variability PROCEDURE: spec placed, cx grasped on ant lip with ring forcep, cerna cx dilator placed and balloon inflated with 40cc sterile water, spec removed, cerna taped to thigh. Results & Data Vital Signs (Past 12 Hours) Vital Signs Temp Pulse BP 10/24/19 08:23 97.9 F 10/24/19 07:34 91 H 124/68 Coding Level of Care Code None Diagnoses Insulin controlled gestational diabetes mellitus (GDM) during O24.414 Encounter for supervision of normal in multigravida, antepartum Z34.80 CPT Codes Cerna Bulb Placement for Cervical Ripening - [id number] ([id number])
--- NOTE | 2019-10-24 11:18 | Labor Progress Brief Note ---
Date of Service October 24, 2019 Subjective Reason For Note: Routine Evaluation doing well, no complaints. cerna balloon fell out. Assessment & Plan (1) Insulin controlled gestational diabetes mellitus (GDM) during : (2) Encounter for supervision of normal in multigravida, antepartum: (3) Obesity affecting , antepartum: will see how arom helps labor pattern, c/w pit. fhts categ 1. cont to m onitor bsg, last was in 60s. Physical Exam Constitutional: WD/WN, vitals as above Neurologic: grossly normal Psychiatric: A+Ox3, euthymic affect Genitourinary: Manual OB Exam: + cervical dilation 4 cm, + cervical effacement 50%, + station -2 and + amniotic fluid (AROM) clear OB Exam Monitor Tracing: + external FHT monitor used (140 mod variability), + external uterine monitor used (q4), + category I and + normal FHT variability Results & Data Vital Signs (Past 12 Hours) Vital Signs Temp Pulse BP 10/24/19 10:57 97 H 113/56 L 10/24/19 08:23 97.9 F 10/24/19 07:34 91 H 124/68 Coding Level of Care Code None Diagnoses Insulin controlled gestational diabetes mellitus (GDM) during O24.414 Encounter for supervision of normal in multigravida, antepartum Z34.80 Obesity affecting , antepartum O99.210
[2019-10-24] MEDS ORDERED: BUPIVACAINE 0.25% 30 ML VIAL ONE (12:16)
[2019-10-24] MEDS ORDERED: ePHEDrine sulfate 50 MG/ML AMP ONE (12:16)
[2019-10-24] MEDS ORDERED: fentaNYL 2MCG/ML ROPIV 1.25MG/ML 100 ML BAG EPI ONE (12:17)
[2019-10-24] MEDS ORDERED: fentaNYL citrate 100 MCG/2 ML VIAL ONE (12:17)
--- NOTE | 2019-10-24 13:10 | Anesthesiology Consultation ---
Date of Service October 24, 2019 Assessment & Plan (1) Encounter for pre-operative examination: Chart Review Chart Review: Acceptable Risk for Surgery and Patient NOT seen in Pre Admission Testing Consults Requested none ASA ASA2 Proposed Anesthesia Anesthesia Type: Labor Epidural Risk / Benefits Reviewed With: PT / POA / Parent / Guardian, Accepts Plan and Informed Consent Obtained History Height/Weight Height: 5 ft 3 in Weight: 108.955 kg Allergies Allergy/AdvReac Type Severity Reaction Status Date / Time amoxicillin Allergy Severe RASH, Verified 10/23/19 09:20 THROAT SWELLS pollen extracts Allergy Intermediate SNEEZE, Verified 10/23/19 09:20 ITCHY-WATERY EYES, CONGESTION Medications Home Medications Medication Instructions Recorded Confirmed Last Taken albuterol sulfate 1.25 mg INHALATION QID PRN 10/24/19 10/24/19 Unknown insulin glargine [Lantus U-100 8 unit SUBCUT HS 10/24/19 10/24/19 10/23/19 20:30 Insulin] insulin lispro [Humalog KwikPen 8 unit SUBCUT TID 10/24/19 10/24/19 10/23/19 17:00 Insulin] montelukast [Singulair] 10 mg PO DAILY 10/24/19 10/24/19 10/23/19 07:00 pedi multivit no.19-folic acid 1 mcg PO 10/24/19 10/24/19 06:00 [Flintstones Multi-Vit Gummies] 1 Active Medications Generic Name Dose Route Start Last Admin Trade Name Freq PRN Reason Stop Dose Admin Lactated Ringer's 1,000 mls @ 125 mls/hr 10/24/19 07:34 10/24/19 12:51 Lr IV 10/26/19 07:33 125 mls/hr .Q8H PRN Administration L&D Protocol Protocol Oxytocin 30 units in 500 mls @ 9 mls/hr 10/24/19 07:34 10/24/19 11:30 Pitocin IV 10/26/19 07:33 0.54 units/hr .Q24H PRN 9 mls/hr Labor Induction/Augmentation Titration Protocol 0.54 UNITS/HR NPO Date Last Intake of Fluids: 10/23/19 Time Last Intake of Fluids: 12:00 Date Last Intake of Solids: 10/23/19 Time Last Intake of Solids: 21:00 Past Medical History Medical History (Updated 10/24/19 @ 13:10 by Deniz Cota MD) ADHD (attention deficit hyperactivity disorder) (Inactive) Anxiety no current meds Asthma (Chronic) uses inhaler PRN Depression no current meds w GERD (gastroesophageal reflux disease) (Resolved) Type 2 diabetes mellitus diagnosed in June 2017 Varicella vaccination Exercise / Class Metabolic Activity II 4-5 Yardwork/Stairs/Walk up hill Past Surgical History Surgical History (Updated 09/23/19 @ 19:12 by Mora Harding RN) S/P tonsillectomy S/P wisdom tooth extraction 2014 Past Anesthesia History No Hx of Anesthesia Complications and No Family Hx of Anesthesia Complications History of PONV No Hx of PONV and No Hx of Motion Sickness Social History Smoking Status: Current every day smoker tobacco type: cigarettes Smoking cigarettes per day: 6 Do You Dip or Chew Tobacco: No Hx Alcohol Use: No Hx Substance Use: No substance use type: does not use Physical Exam Vital Signs Last Vital Signs Temp 36.6 C 10/24/19 08:23 Pulse 103 H 10/24/19 13:07 BP 100/52 L 10/24/19 13:07 Pulse Ox 98 10/24/19 13:07 ENMT Mouth: no dentition abnormality Thyromental Distance: > or= 3.5 Finger Breadths Mallampati Class: II Neck normal visual inspection Respiratory normal respiratory effort Auscultation: lungs clear to auscultation bilaterally Cardiovascular Rate/Rhythm: regular rate and regular rhythm Psychiatric Orientation: alert Testing Laboratory Results 10/24/19 07:43 10/24/19 10/24/19 10/24/19 10:47 10:45 08:47 POC Glucose 66 L* 68 L* 132 H
[2019-10-24] MEDS ORDERED: NALOXONE HCL 0.4 MG/1 ML VIAL/CARP IV PRN (13:13)
[2019-10-24] MEDS ORDERED: PROMETHAZINE HCL 6.25 MG in SODIUM CHLORIDE 0.9% 50 ML IV PRN (13:13)
[2019-10-24] MEDS ORDERED: ePHEDrine sulfate 50 MG/ML AMP IV PRN (13:13)
[2019-10-24] MEDS ORDERED: DiphenhydrAMINE HCL 50 MG/ML VIAL IV PRN (13:13)
[2019-10-24] MEDS ORDERED: NALBUPHINE HCL INJ 10 MG/ML AMP IV PRN (13:13)
[2019-10-24] MEDS ORDERED: fentaNYL 2MCG/ML ROPIV 1.25MG/ML 100 ML BAG EPI PRN (13:13)
[2019-10-24] MEDS ORDERED: ONDANSETRON INJ 2 MG/ML 2 ML VIAL IV PRN (13:13)
[2019-10-24] MEDS ORDERED: NALOXONE HCL 1 MG in SODIUM CHLORIDE 0.9% 1000ML 1,000 ML IV PRN (13:13)
--- NOTE | 2019-10-24 17:10 | Labor Progress Brief Note ---
Date of Service October 24, 2019 Subjective Reason For Note: Routine Evaluation pt feels like pushing. per nurse completely dilated . Assessment & Plan (1) Insulin controlled gestational diabetes mellitus (GDM) during : (2) Obesity affecting , antepartum: begin 2nd stage. fhts categ 1. check bsg now. expect soon. Physical Exam Constitutional: WD/WN, vitals as above Psychiatric: A+Ox3, euthymic affect Genitourinary: OB Exam Monitor Tracing: + external FHT monitor used (130 mod variability), + external uterine monitor used (q2), + category I and + normal FHT variability Results & Data Vital Signs (Past 12 Hours) Vital Signs Temp Pulse Resp BP Pulse Ox 10/24/19 17:06 114 H 88 L 10/24/19 17:02 98 H 100 10/24/19 16:57 102 H 100 10/24/19 16:55 93 H 127/75 10/24/19 16:52 102 H 100 10/24/19 16:47 98.2 F 102 H 20 100 10/24/19 16:42 106 H 100 10/24/19 16:37 96 H 98 10/24/19 16:36 92 H 126/67 10/24/19 16:32 88 97 10/24/19 16:27 90 99 10/24/19 16:25 96 H 111/57 L 10/24/19 16:22 93 H 98 10/24/19 16:17 94 H 97 10/24/19 16:15 93 H 115/57 L 10/24/19 16:12 91 H 99 10/24/19 16:07 87 100 10/24/19 16:06 86 124/60 10/24/19 16:02 86 100 10/24/19 15:57 100 H 100 10/24/19 15:52 102 H 99 10/24/19 15:47 96 H 116/56 L 100 10/24/19 15:42 105 H 98 10/24/19 15:37 91 H 99 10/24/19 15:35 99 H 105/56 L 10/24/19 15:32 91 H 100 10/24/19 15:27 99 H 99 10/24/19 15:26 99 H 108/56 L 10/24/19 15:22 90 100 10/24/19 15:17 98 H 100 10/24/19 15:16 96 H 113/60 10/24/19 15:12 92 H 100 10/24/19 15:07 98 H 99 10/24/19 15:02 96 H 100 10/24/19 14:57 102 H 99 10/24/19 14:52 96 H 100 10/24/19 14:47 103 H 99 10/24/19 14:45 100 H 98/54 L 10/24/19 14:42 96 H 100 10/24/19 14:37 106 H 100 10/24/19 14:35 106 H 110/58 L 10/24/19 14:32 101 H 100 10/24/19 14:27 111 H 99 10/24/19 14:25 106 H 92/54 L 10/24/19 14:22 103 H 98 10/24/19 14:17 103 H 98 10/24/19 14:13 107 H 93 10/24/19 14:12 105 H 95 10/24/19 14:07 106 H 98 10/24/19 14:06 103 H 104/57 L 10/24/19 14:02 101 H 98 10/24/19 13:57 100 H 98 10/24/19 13:56 103 H 104/57 L 10/24/19 13:52 106 H 99 10/24/19 13:47 102 H 98 10/24/19 13:45 101 H 97/55 L 10/24/19 13:42 104 H 98 10/24/19 13:37 101 H 99 10/24/19 13:35 105 H 112/57 L 10/24/19 13:32 102 H 98 10/24/19 13:27 99 H 98 10/24/19 13:26 103 H 108/53 L 10/24/19 13:22 97 H 97 10/24/19 13:17 107 H 100 10/24/19 13:15 107 H 101/52 L 10/24/19 13:13 108 H 102/50 L 10/24/19 13:12 98.4 F 109 H 18 97 10/24/19 13:11 110 H 98/53 L 10/24/19 13:09 105 H 93/54 L 10/24/19 13:07 103 H 100/52 L 98 10/24/19 13:05 108 H 107/53 L 10/24/19 13:03 102 H 105/61 10/24/19 13:02 101 H 99 10/24/19 13:01 103 H 111/65 10/24/19 12:59 97 H 109/55 L 10/24/19 12:58 94 H 112/57 L 10/24/19 12:57 89 100 10/24/19 12:55 91 H 116/63 10/24/19 12:52 87 98 10/24/19 12:47 111 H 100 10/24/19 12:42 104 H 100 10/24/19 12:37 95 H 100 10/24/19 12:32 90 94 10/24/19 12:27 97 H 97 10/24/19 12:00 81 119/56 L 10/24/19 10:57 97 H 113/56 L 10/24/19 08:23 97.9 F 10/24/19 07:34 91 H 124/68 Coding Level of Care Code None Diagnoses Insulin controlled gestational diabetes mellitus (GDM) during O24.414 Obesity affecting , antepartum O99.210
[2019-10-24] MEDS ORDERED: OXYCODONE/ACETAMINOPHEN 5mg/325mg TAB PO PRN (17:53)
[2019-10-24] MEDS ORDERED: IBUPROFEN 600 MG TAB PO PRN (17:53)
[2019-10-24] MEDS ORDERED: ACETAMINOPHEN 325 MG TAB PO PRN (17:53)
--- NOTE | 2019-10-24 17:57 | Delivery Summary ---
Vaginal Delivery Summary Date of Service October 24, 2019 The patient dilated to complete and pushed to deliver a viable female infant Apgars 7 and 9 via over intact perineum. With attempt at delivery of anterior shoulder mild dystocia encounter. Ernie Monroy's maneuvers and suprapubic pressure given with release of anterior shoulder and opted to have patient continue to push to deliver baby. Infant was vigorous at . Cord clamped and to maternal abdomen where the cord was then doubly clamped and cut. Placenta delivered spontaneously and intact, three-vessel cord. Hemostasis achieved with dilute pitocin and uterine massage and drainage of the bladder for approximately 50 cc under sterile conditions. Cervix and sulci intact. EBL 300 cc. Mother and baby stable recovery. Circumstances of shoulder dystocia and methods to help deliver infant reviewed with couple. [facility] [place] Vaginal Delivery Codes: 90447 global code for the antepartum, delivery, and post-
--- NOTE | 2019-10-24 17:59 | Anesthesia Procedure Note ---
Date of Service October 24, 2019 Anesthesia Post Epidural Note Vital Signs Vital Signs: Temp Pulse Resp BP Pulse Ox 36.8 C 109 H 20 121/78 100 10/24/19 16:47 10/24/19 17:48 10/24/19 16:47 10/24/19 17:48 10/24/19 17:32 Notes Mental Status: alert / awake / arousable Nausea / Vomiting: adequately controlled Pain: adequately controlled Airway Patency, RR, SpO2: stable & adequate BP & HR: stable & adequate Hydration State: stable & adequate Neuraxial Anesthesia: was administered and sensory block is resolving Anesthetic Complications: no major complications apparent and Pt Satisfied with anesthetic care Epidural: Removed without complications and With tip intact
--- NOTE | 2019-10-24 17:59 | Anesthesiology Progress Note ---
Date of Service October 24, 2019 Anesthesia Post Procedure Vital Signs Vital Signs: Temp Pulse Resp BP Pulse Ox 10/24/19 17:48 109 H 121/78 10/24/19 17:32 112 H 100 10/24/19 17:27 119 H 98 10/24/19 17:22 119 H 99 10/24/19 17:17 117 H 98 10/24/19 17:12 119 H 100 10/24/19 17:11 89 89 L 10/24/19 17:07 97 H 100 10/24/19 17:06 114 H 88 L 10/24/19 17:02 98 H 100 10/24/19 16:57 102 H 100 10/24/19 16:55 93 H 127/75 10/24/19 16:52 102 H 100 10/24/19 16:47 36.8 C 102 H 20 100 10/24/19 16:42 106 H 100 10/24/19 16:37 96 H 98 10/24/19 16:36 92 H 126/67 10/24/19 16:32 88 97 10/24/19 16:27 90 99 10/24/19 16:25 96 H 111/57 L 10/24/19 16:22 93 H 98 10/24/19 16:17 94 H 97 10/24/19 16:15 93 H 115/57 L 10/24/19 16:12 91 H 99 10/24/19 16:07 87 100 10/24/19 16:06 86 124/60 10/24/19 16:02 86 100 10/24/19 15:57 100 H 100 10/24/19 15:52 102 H 99 10/24/19 15:47 96 H 116/56 L 100 10/24/19 15:42 105 H 98 10/24/19 15:37 91 H 99 10/24/19 15:35 99 H 105/56 L 10/24/19 15:32 91 H 100 10/24/19 15:27 99 H 99 10/24/19 15:26 99 H 108/56 L 10/24/19 15:22 90 100 10/24/19 15:17 98 H 100 10/24/19 15:16 96 H 113/60 10/24/19 15:12 92 H 100 10/24/19 15:07 98 H 99 10/24/19 15:02 96 H 100 10/24/19 14:57 102 H 99 10/24/19 14:52 96 H 100 10/24/19 14:47 103 H 99 10/24/19 14:45 100 H 98/54 L 10/24/19 14:42 96 H 100 10/24/19 14:37 106 H 100 10/24/19 14:35 106 H 110/58 L 10/24/19 14:32 101 H 100 10/24/19 14:27 111 H 99 10/24/19 14:25 106 H 92/54 L 10/24/19 14:22 103 H 98 10/24/19 14:17 103 H 98 10/24/19 14:13 107 H 93 10/24/19 14:12 105 H 95 10/24/19 14:07 106 H 98 10/24/19 14:06 103 H 104/57 L 10/24/19 14:02 101 H 98 10/24/19 13:57 100 H 98 10/24/19 13:56 103 H 104/57 L 10/24/19 13:52 106 H 99 10/24/19 13:47 102 H 98 10/24/19 13:45 101 H 97/55 L 10/24/19 13:42 104 H 98 10/24/19 13:37 101 H 99 10/24/19 13:35 105 H 112/57 L 10/24/19 13:32 102 H 98 10/24/19 13:27 99 H 98 10/24/19 13:26 103 H 108/53 L 10/24/19 13:22 97 H 97 10/24/19 13:17 107 H 100 10/24/19 13:15 107 H 101/52 L 10/24/19 13:13 108 H 102/50 L 10/24/19 13:12 36.9 C 109 H 18 97 10/24/19 13:11 110 H 98/53 L 10/24/19 13:09 105 H 93/54 L 10/24/19 13:07 103 H 100/52 L 98 10/24/19 13:05 108 H 107/53 L 10/24/19 13:03 102 H 105/61 10/24/19 13:02 101 H 99 10/24/19 13:01 103 H 111/65 10/24/19 12:59 97 H 109/55 L 10/24/19 12:58 94 H 112/57 L 10/24/19 12:57 89 100 10/24/19 12:55 91 H 116/63 10/24/19 12:52 87 98 10/24/19 12:47 111 H 100 10/24/19 12:42 104 H 100 10/24/19 12:37 95 H 100 10/24/19 12:32 90 94 10/24/19 12:27 97 H 97 10/24/19 12:00 81 119/56 L 10/24/19 10:57 97 H 113/56 L 10/24/19 08:23 36.6 C 10/24/19 07:34 91 H 124/68 Transfer of Care Handoff Completed per policy Notes Mental Status: alert / awake / arousable Patient Amnestic to Procedure: Yes Nausea / Vomiting: adequately controlled Pain: adequately controlled Airway Patency, RR, SpO2: stable & adequate BP & HR: stable & adequate Hydration State: stable & adequate Anesthetic Complications: no major complications apparent
[2019-10-24] MEDS ORDERED: OXYTOCIN 20 UNITS in LACTATED RINGER'S 1,000 ML IV SCH (18:00)
[2019-10-24 18:09] LABS: Base Excess Cord Venous Blood 0.2 mEq/L (-7.7-1.9); Cord Venous Blood HCO3 25 mmol/L (18.4-26.8); Cord Venous Blood PCO2 41 mmHg (30.4-57.2); Cord Venous Blood PO2 30 mmHg (14.1-43.3)
[2019-10-24 18:18] LABS: Base Excess Cord Arterial Bld -1.2 mEq/L (-9-1.8); CO2 Cord Arterial Blood 46 mmHg (39.1-73.5); HCO3 Cord Arterial Blood 25 mmol/L (19.7-28.5); PO2 Cord Arterial Blood 28 mmHg (4.1-31.7); pH Cord Arterial Blood 7.35 (7.1-7.38)
[2019-10-24] MEDS ORDERED: BENZOCAINE 20% AER SPR 82.5 GM CAN EXT PRN (18:30)
[2019-10-24] MEDS ORDERED: DIPHTHERIA/TETANUS/PERTUSSIS 0.5 ML SYR/VIAL IM ONE (18:30)
[2019-10-24] MEDS ORDERED: SUPERCREAM 0.870% 15 GM JAR EXT PRN (18:30)
[2019-10-24] MEDS ORDERED: LACTATED RINGER'S 1,000 ML IV SCH (18:30)
[2019-10-24] MEDS ORDERED: HYDROCORTISONE ACETATE 25 MG SUPP PR PRN (18:30)
[2019-10-24] MEDS ORDERED: ALBUTEROL 0.083% NEBU SOLN 3 ML VIAL INH PRN (18:50)
[2019-10-24] MEDS: MONTELUKAST SODIUM 10 MG TABLET PO SCH (20:41)
[2019-10-24] MEDS: DOCUSATE SODIUM 100 MG CAP PO SCH (20:41)
--- NOTE | 2019-10-25 06:42 | Obstetrical Progress Note ---
Date of Service October 25, 2019 Assessment & Plan Admission and Anticipated Discharge Date Admission Date: October 24, 2019 Doing well, stable for d/c home, f/u 6wks pp check. instructions reviewed. O+, GBS -,breast and bottle feeding, pain well controlled. Day #:: 1 Supervising Physician Co-Signing Physician Notes Resident Physician Supervision Note: I was present with Dr. Moore during the history and exam. I discussed the case with the resident and agree with the findings and plan as documented in the note. Any exceptions or clarifications are listed here: doing well, wants to go home later today, rh pos, phyllis po, voiding and ambulating without problem. instructions reviewed, f/u 6wks pp check. she will contact her pcp for restart of her metformin and mgmt. Documented By: Kenna Iyer MD, FACOG Subjective Ambulation: ambulating normally Voiding: no voiding problems Diet Tolerance:: regular diet Lochia:: like a heavy period Feeding Type:: breast and bottle feeding due to nipple pain doing well, denies complaints. Physical Exam Constitutional: WD/WN, vitals as above Respiratory: normal respiratory effort, lungs clear to auscultation Cardiovascular: Rate/Rhythm: regular rate and regular rhythm Gastrointestinal (Abdomen): Inspection/Auscultation: abdomen normal to inspection Percussion/Palpation: abdomen soft fundus firm 2 cm below umbilicus Musculoskeletal: nt calves no edema Neurologic: grossly normal Psychiatric: A+Ox3, euthymic affect Results & Data ([facility]) Vital Signs (Past 12 Hours) Vital Signs Temp Pulse Pulse Resp BP BP Pulse Ox 10/25/19 03:05 36.9 C 88 16 136/83 98 10/24/19 23:20 36.9 C 89 16 116/71 99 10/24/19 20:20 37.6 C H 102 H 18 149/84 H 98 10/24/19 20:02 18 10/24/19 19:32 102 H 125/68 10/24/19 19:18 105 H 124/69 10/24/19 19:02 36.6 C 105 H 18 116/57 L 10/24/19 18:47 105 H 116/60
[2019-10-25] MEDS: DOCUSATE SODIUM 100 MG CAP PO SCH ×2 (08:27→20:27)
[2019-10-25] MEDS: MONTELUKAST SODIUM 10 MG TABLET PO SCH (20:27)
--- NOTE | 2019-10-26 06:47 | Obstetrical Progress Note ---
Date of Service October 26, 2019 Assessment & Plan Admission and Anticipated Discharge Date Admission Date: October 24, 2019 24 yo s/p VD @ 39.3 complicated by obesity and GDMA2 -PPD# 2 - POC glucose 69 - GBS - , Blood Type O+ - Feels well today. Eating well, voiding well, ambulating well. - Pain well controlled . - Routine post care - After discharge will have 6 week followup. Supervising Physician Co-Signing Physician Notes I have reviewed the resident's note and examined the patient myself, and agree with the note above. Subjective Hilary Lynn is doing well this morning, she is and bottle feeding. Her pain is well controlled with Motrin. Baby was estela positive but doing well. Review of Systems Review of Systems: Denies fever, chills, sweats Denies shortness of breath, difficulty breathing, chest pain, palpitations, chest pressure. Denies breast pain. Denies dysuria. Denies headache. Physical Exam Physical Exam: General: Alert, oriented. No acute distress. Cardiac: Regular rate and rhythm, no murmurs/rubs/gallops. Respiratory: Clear to auscultation anterior and posteriorly, no wheezes/rale s/rhonchi. No increased work of breathing. Symmetrical chest rise. No respiratory distress. Abdomen: Soft, nontender, nondistended. Bowel sounds present. Uterus: Uterine fundus firm, palpable _cm below umbilicus. Lower Extremities: No lower extremity edema or swelling. No deep calf pain. Glen's negative bilaterally. Results & Data ([facility]) Vital Signs (Past 12 Hours) Vital Signs Temp Pulse Resp BP 10/25/19 23:45 36.6 C 76 18 134/87 Resident Activity Tracking Resident Involvement: Resident Care Provided Care Provided: OB Delivery
[2019-10-26] MEDS: DOCUSATE SODIUM 100 MG CAP PO SCH (08:26)
== END 2019-10-26 11:05 | disposition home or self-care (01) | DRG 806 ==
LOC: 4S1 07:20 → 4S2 20:20